=== PATIENT | female | born 1955 | race Caucasian/White ===

== ENCOUNTER → 2016-11-13 | Outpatient (CLI) | payer OTHER ==
--- NOTE | 2016-11-13 14:06 | MAM ---
EXAM DESCRIPTION: MAMMO BREAST SCREENING BILATERAL CAD, images were reviewed with CAD technology, R2 computer-aided detection. CLINICAL HISTORY: [facility]. COMPARISON: 2013. FINDINGS: Routine views are obtained. Glandular tissue is near completely fatty involuted. No dominant mass, architectural distortion or clustered microcalcification.. IMPRESSION: Benign exam. BIRAD CATEGORY: 2 BENIGN RECOMMENDATIONS: FOLLOW-UP: Routine screening mammogram in one year. According to the [employer], yearly mammograms are recommended starting at age 40 and continuing as long as a woman is in good health. Any breast change noted on a breast self-exam should be reported promptly to the patient's healthcare provider. Breast MRI is recommended for women with an approximately 20-25% or greater lifetime risk of breast cancer, including women with a strong family history of breast or ovarian cancer and women who have been treated for Hodgkin's disease. Electronically signed by: Lucie Smith 11/13/2016 14:04
== END ==
LOC: MAMMO 11:35
PROVIDERS: ATTEND Obstetrics & Gynecology
DX: Z12.31 Encounter for screening mammogram for malignant neoplasm of breast (principal)
CPT/HCPCS: 77052; G0202

== ENCOUNTER → 2017-11-14 | Outpatient (CLI) | payer OTHER ==
--- NOTE | 2017-11-15 10:19 | MAM ---
EXAM DESCRIPTION: 3D Screening BILATERAL : Digital Mammography. CLINICAL HISTORY: 62 years Female SCREENING . No complaints. No family history breast cancer. Postmenopausal. No HRT. COMPARISON: 2-D digital screening bilateral studies 11/13/2016 and 11/07/2015. Report from prior examination also reviewed. TECHNIQUE: Bilateral CC and MLO projection full-field images, 3-D tomosynthesis digital mammographic technique. Also bilateral synthesized CC/ MLO full-field images. CAD not utilized. FINDINGS: The breast parenchymal density pattern is: Scattered areas of fibroglandular density. No skin thickening or nipple retraction bilateral solitary microcalcifications. No focal, stellate mass or density, focal asymmetry , and no suspicious microcalcifications bilaterally. Stable mammograms compared to prior study, taking into account differences in mammographic technique IMPRESSION: BI-RADS CATEGORY: 2 - BENIGN FINDINGS. FOLLOW UP: Routine digital bilateral screening, one year interval from October 2017. Written communication explaining the IMPRESSION and follow-up, will be mailed to the patient and referring health care provider. According to the [employer], yearly mammograms are recommended starting at age 40 and continuing as long as a woman is in good health. Any breast change noted on a breast self-exam should be reported promptly to the patient's healthcare provider. Breast MRI is recommended for women with an approximately 20-25% or greater lifetime risk of breast cancer, including women with a strong family history of breast or ovarian cancer and women who have been treated for Hodgkin's disease. A negative mammographic report should not delay tissue diagnosis in patients with significant clinical history or physical findings. Extremely dense breast tissue limits the sensitivity of digital mammography. Electronically signed by: Chris Huff MD 11/15/2017 10:18 AM [facility]
== END | disposition home or self-care (01) ==
LOC: MAMMO 13:54
PROVIDERS: ATTEND Obstetrics & Gynecology
DX: Z12.31 Encounter for screening mammogram for malignant neoplasm of breast (principal)

== ENCOUNTER → 2018-11-18 | Outpatient (CLI) | payer OTHER ==
--- NOTE | 2018-11-19 16:31 | MAM ---
EXAM DESCRIPTION: 3D Screening BILATERAL : Digital Mammography. CLINICAL HISTORY: 63 years Female SCREEN . No complaints. No family history of breast cancer. Childbirth. Postmenopausal. No HRT. Lifetime risk of developing breast cancer (Tyrer-Cuzick model)(%): 5.8. COMPARISON: Bilateral screening digital breast tomosynthesis 11/14/2017. TECHNIQUE: Bilateral CC and MLO projection full-field images, digital tomosynthesis mammographic technique. Bilateral digital 2-D full-field MLO images. CAD not available for tomosynthesis or 2-D images. FINDINGS: The breast parenchymal density pattern is: Almost entirely fatty. No skin thickening or nipple retraction. Bilateral solitary microcalcifications. No new focal, stellate mass or density, focal asymmetry , and no suspicious microcalcifications bilaterally. Stable mammograms compared to prior study. IMPRESSION: Benign exam. BIRAD CATEGORY: 2 BENIGN FINDINGS. RECOMMENDATIONS: FOLLOW UP: Routine digital bilateral mammographic screening, one year interval from October 2018. Written communication explaining the IMPRESSION and follow-up, will be mailed to the patient and referring health care provider. According to the [employer], yearly mammograms are recommended starting at age 40 and continuing as long as a woman is in good health. Any breast change noted on a breast self-exam should be reported promptly to the patient's healthcare provider. Breast MRI is recommended for women with an approximately 20-25% or greater lifetime risk of breast cancer, including women with a strong family history of breast or ovarian cancer and women who have been treated for Hodgkin's disease. A negative mammographic report should not delay tissue diagnosis in patients with significant clinical history or physical findings. Extremely dense breast tissue limits the sensitivity of digital mammography. Electronically signed by: Chris Huff MD 11/19/2018 4:30 PM [facility]
== END ==
LOC: MAMMO 13:00
PROVIDERS: ATTEND Obstetrics & Gynecology
DX: Z12.31 Encounter for screening mammogram for malignant neoplasm of breast (principal)

== ENCOUNTER → 2019-01-19 | Outpatient (CLI) | payer MEDICARE, OTHER ==
--- NOTE | 2019-01-19 11:08 | RAD ---
EXAM DESCRIPTION: Pelvis CLINICAL HISTORY: 64 years Female, M25.561, M25.551 COMPARISON: None. FINDINGS: Single view of the pelvis demonstrates bony pelvis intact. Sclerosis of the symphysis pubis is incidentally noted. No fracture or deformity or dislocation or hip injury is evident. The SI joints are mildly degenerative. IMPRESSION: Negative pelvis one view. Electronically signed by: Adelso Mcclelland MD 01/19/2019 11:04 AM CDT
--- NOTE | 2019-01-19 11:12 | RAD ---
EXAM DESCRIPTION: Knee,Right Complete CLINICAL HISTORY: 64 years, Female, M25.561, M25.551 COMPARISON: None TECHNIQUE: Four views right knee FINDINGS: Four views right knee demonstrate advanced multicompartment degenerative joint disease particularly involving the lateral aspect of the patellofemoral articulation and moderately at the medial and lateral joint compartments. A significant or large joint effusion is not apparent. No fracture or dislocation is seen. IMPRESSION: 1. Moderately advanced degenerative changes right knee. Electronically signed by: Adelso Mcclelland MD 01/19/2019 11:09 AM CDT
== END ==
LOC: RAD 09:06
PROVIDERS: ATTEND Orthopaedic Surgery
DX: M17.11 Unilateral primary osteoarthritis, right knee (principal); M25.551 Pain in right hip

== ENCOUNTER → 2019-04-16 | Outpatient (CLI) | payer MEDICARE, OTHER | DX: Z01.818 Encounter for other preprocedural examination (principal) ==

== ENCOUNTER → 2019-05-07 | Day surgery (SDC) | payer MEDICARE, OTHER ==
--- NOTE | 2019-05-07 09:12 | HP ---
CHIEF COMPLAINT: Right knee pain. HISTORY OF PRESENT ILLNESS: Ms. Pickering is a 64-year-old female with a history of severe pain in the knee. Her pain has been associated with her rheumatoid arthritis. Because of her ongoing pain and failure of conservative measures, she has requested operative intervention. After discussing the risks, benefits and alternatives to that, she has given informed consent. She says that the pain in this knee was not related to trauma, does not radiate and there are no neurologic symptoms. She says it is sharp at times, but is aching on a continual basis. PAST SURGICAL HISTORY: 1. Adenoidectomy. 2. Tubal ligation. 3. Appendectomy. 4. Hysterectomy. 5. Bladder suspension. 6. Hammertoe correction. MEDICATIONS: 1. Benazepril. 2. Amlodipine. 3. Triamterene. 4. Hyoscyamine. 5. Hydroxychloroquine. 6. Omeprazole. 7. Piroxicam. 8. Multiple vitamins. ALLERGIES: NO KNOWN DRUG ALLERGIES. CODE STATUS: Full code. IMMUNIZATIONS: Up to date. SOCIAL HISTORY: The patient does not smoke or use any illicit drugs. She does drink on occasion. FAMILY HISTORY: None pertinent to today's complaint. REVIEW OF SYSTEMS: Negative except as indicated in the History of Present Illness. PHYSICAL EXAMINATION: VITAL SIGNS: Blood pressure 156/106. Pulse 73. Height 5'3". Weight 180 pounds. MENTAL STATUS: The patient is awake, alert, and is able to give a good history and participate in the physical. The patient is oriented to person, place and time. SKIN: Normal tone and turgor. HEENT: Normocephalic, atraumatic. Pupils equal, round and reactive. Mucosal membranes are moist. NECK: Normal range of motion. No thyromegaly, no lymphadenopathy. CHEST: Normal respiratory excursion. CARDIAC: Regular rate and rhythm. No murmurs, rubs or gallops. MUSCULOSKELETAL: The bilateral upper extremities show full active range of motion without pain. She has intact sensation. They are warm and well perfused. She has no deformities and no crepitus. Strength is 5/5. The left lower extremity shows full range of motion of the hip. Sensation is intact in the extremity. It is warm and well perfused. She has no overall deformity and she has full 5/5 strength. The right lower extremity shows full range of motion of the hip. She has near full extension of the knee, but does lack a couple of degrees. She has no overall deformity, but she is very tender to palpation. She has moderate sized effusion today. She does not have any varus/valgus or anterior/posterior laxity. IMAGING: X-rays show severe arthritis of the knee. ASSESSMENT: 1. Rheumatoid arthritis. PLAN: The plan at this point is for total knee arthroplasty. We have discussed the risks, benefits, and alternatives to that and the patient has given informed consent. [id number]
--- NOTE | 2019-05-07 09:39 | RAD ---
EXAM DESCRIPTION: Chest,2 Views CLINICAL HISTORY: pre op COMPARISON: None TECHNIQUE: PA/lateral FINDINGS: There is no acute appearing cardiac or pulmonary abnormality. Heart size is normal with normal pulmonary vascularity. No pleural effusion or pneumothorax. Lungs are clear with no consolidating infiltrate. Lateral view shows intact sternum and T-spine. IMPRESSION: No acute process is identified in the chest. Electronically signed by: Luis Antonio Nicholson MD 05/07/2019 9:37 AM CDT
== END ==
LOC: AMB 08:00
PROVIDERS: ATTEND Orthopaedic Surgery
DX: Z01.810 Encounter for preprocedural cardiovascular examination (principal); Z53.9 Procedure and treatment not carried out, unspecified reason

== ENCOUNTER 2019-06-09 05:30 | Inpatient (IN) | payer MEDICARE, OTHER ==
[2019-06-09] MEDS ORDERED: ceFAZolin SODIUM 1 GM VIAL ONE ×2 (05:52→06:30)
[2019-06-09] MEDS ORDERED: VANCOMYCIN HCL INJ 1,000 MG VIAL IVPB ONE ×3 (05:52→18:03)
[2019-06-09] MEDS ORDERED: LACTATED RINGERS 1,000 ML ONE ×2 (05:52→09:47)
[2019-06-09] MEDS ORDERED: TRANEXAMIC ACID 1,000 MG/10 ML VIAL ONE ×2 (05:52→05:53)
[2019-06-09] MEDS ORDERED: SODIUM CHL 0.9% 100ML MINI-BAG 100 ML IVPB ONE (05:52)
[2019-06-09] MEDS ORDERED: SODIUM CHLORIDE 0.9% 100ML 100 ML IVPB ONE (05:53)
[2019-06-09] MEDS ORDERED: SODIUM CHLORIDE 0.9% 250ML 250 ML ONE ×2 (05:53→18:03)
[2019-06-09] MEDS ORDERED: BUPIVACAINE LIPOSOME 13.3 MG/ML VIAL INJ ONE (06:31)
[2019-06-09] MEDS ORDERED: BUPIVACAINE 0.5% 30 ML VIAL INJ ONE (06:31)
[2019-06-09] MEDS ORDERED: ACETAMINOPHEN IV 1000MG 100 ML ONE (06:32)
[2019-06-09] MEDS ORDERED: MIDAZOLAM INJ 2 MG/2 ML VIAL ONE ×2 (06:33→06:50)
[2019-06-09] MEDS ORDERED: fentaNYL CITRATE INJ 50 MCG/ML AMP ONE (06:33)
[2019-06-09] MEDS ORDERED: MORPHINE SULFATE *EPIDURAL* 0.5 MG/ML VIAL ONE (06:33)
[2019-06-09] MEDS ORDERED: KETAMINE HCL 50 MG/ML SYG IV ONE (06:33)
--- NOTE | 2019-06-09 09:26 | RAD ---
EXAM DESCRIPTION: Fluoroscopy Up to 1Hr CLINICAL HISTORY: 64 years Female, RIGHT TKA COMPARISON: None. TECHNIQUE: A single image from operative C-arm demonstrates placement of a right total knee prosthesis, visualized in the AP projection. Total fluoroscopic time is reported as five seconds with a fluoroscopic dose not available from the equipment utilized. FINDINGS: The AP view demonstrates femoral and tibial components applied to the underlying bone in satisfactory alignment. A lateral view is not submitted. IMPRESSION: Operative view of right total knee replacement, AP view only. Electronically signed by: Adelso Mcclelland MD 06/09/2019 9:24 AM CDT
[2019-06-09] MEDS ORDERED: diphenhydrAMINE HCL 50 MG/ML VIAL IV ONE (10:00)
[2019-06-09] MEDS ORDERED: PROPOFOL 200 MG/20 ML VIAL IV ONE (10:00)
[2019-06-09] MEDS ORDERED: DEXAMETHASONE INJ 10 MG/ML VIAL IV ONE (10:00)
[2019-06-09] MEDS ORDERED: raNITIdine HCL INJ 25 MG/ML VIAL IV ONE (10:00)
[2019-06-09] MEDS ORDERED: ACETAMINOPHEN 500 MG TAB PO PRN (10:04)
[2019-06-09] MEDS ORDERED: ACETAMINOPHEN 325 MG TAB PO PRN (10:04)
[2019-06-09] MEDS ORDERED: MAGNESIUM HYDROXIDE 30 ML UD PO PRN (10:04)
[2019-06-09] MEDS ORDERED: MORPHINE SULFATE INJ 10 MG/ML VIAL IV PRN (10:04)
[2019-06-09] MEDS ORDERED: MORPHINE SULFATE INJ 10 MG/ML VIAL IM PRN (10:04)
[2019-06-09] MEDS ORDERED: PROMETHAZINE HCL INJ 25 MG in SODIUM CHLORIDE 0.9% 50ML 50 ML IVPB PRN (10:04)
[2019-06-09] MEDS ORDERED: DEX 5% W/NACL 0.45% 1000ML 1,000 ML IVS PRN (10:04)
[2019-06-09] MEDS ORDERED: traMADol HCL 50 MG TAB PO PRN (10:04)
[2019-06-09] MEDS ORDERED: PROMETHAZINE HCL INJ 12.5 MG in SODIUM CHLORIDE 0.9% 50ML 50 ML IVPB PRN (10:04)
[2019-06-09] MEDS ORDERED: NALOXONE HCL INJ 0.4 MG/ML VIAL IV PRN (10:04)
[2019-06-09] MEDS ORDERED: ALUMINUM & MAGNESIUM HYDROXIDE 30 ML UD PO PRN (10:04)
[2019-06-09] MEDS ORDERED: TEMAZEPAM 15 MG CAP PO PRN (10:04)
[2019-06-09] MEDS ORDERED: BENZOCAINE-MENTH LOZ (CEPACOL) 1 EA LOZ MT PRN (10:04)
[2019-06-09] MEDS ORDERED: CYCLOBENZAPRINE HCL 10 MG TAB PO PRN (10:04)
[2019-06-09] MEDS ORDERED: SODIUM CHLORIDE 0.9% (FLUSH) 10 ML SYG IV PRN (10:04)
[2019-06-09] MEDS ORDERED: ZOLPIDEM TARTRATE 5 MG TAB PO PRN (10:04)
[2019-06-09] MEDS ORDERED: BISACODYL SUPPOSITORY 10 MG PR PRN (10:04)
[2019-06-09] MEDS ORDERED: MORPHINE PCA 1 MG/ML 100 ML BAG IVPB SCH (10:30)
[2019-06-09] MEDS: IV SET AND CAP CHANGE INJ INJ SCH (11:16)
[2019-06-09] MEDS ORDERED: diphenhydrAMINE HCL 50 MG/ML VIAL IV PRN (11:29)
[2019-06-09] MEDS ORDERED: CETIRIZINE HCL 10 MG TAB PO PRN (11:38)
--- NOTE | 2019-06-09 11:38 | RAD ---
PROVIDED CLINICAL HISTORY/REASON FOR EXAM: TKA Findings: Number of images: Two Location: Right knee Right total knee arthroplasty. No evidence of hardware complication. Anterior right knee soft tissue swelling and emphysema, an expected postoperative finding. No acute fracture or dislocation. IMPRESSION: Right total knee arthroplasty. No evidence of hardware complication. Electronically signed by: Jeet Oleary MD 06/09/2019 11:37 AM CDT
--- NOTE | 2019-06-09 11:58 | CONS ---
SUPERVISING PHYSICIAN: Kadeem De La Fuente MD DATE OF CONSULTATION: 06/09/19 CHIEF COMPLAINT: Medical management. HISTORY OF PRESENT ILLNESS: This is a 64-year-old female who electively underwent right total knee arthroplasty today. She has right knee osteoarthritis which failed conservative measures. For that reason, she underwent the surgical intervention today without any intraoperative complications. Postoperatively, she is in the Medical/Surgical Unit, alert and oriented with no complaints of pain, however, having a little bit of itching after some pain medications. She is in no distress. PAST MEDICAL HISTORY: 1. Hypertension. 2. Reflux. 3. Previous gastric ulcer. 4. Osteoarthritis. PAST SURGICAL HISTORY: 1. Hammertoe surgery. 2. Heel spur surgery. 3. Hysterectomy. 4. Tubal ligation. 5. Cholecystectomy. 6. Appendectomy. 7. Bladder suspension. 8. Adenoidectomy. MEDICATIONS: Please see med rec list. ALLERGIES: NO KNOWN DRUG ALLERGIES. FAMILY HISTORY: Reviewed and noncontributory. SOCIAL HISTORY: No smoking, no illicit drugs. Social alcohol use. REVIEW OF SYSTEMS: Preoperatively, right knee pain. Postoperatively, no pain at this time. She does complain of a little bit of itching. Otherwise, 12 system review of symptoms is negative. PHYSICAL EXAMINATION: VITAL SIGNS: Blood pressure 124/43. Heart rate 65. Respiratory rate 16. Temperature 98.8. Oxygen saturation 97%. GENERAL: Ms. Pickering is a 64-year-old female in no active distress currently. NEUROLOGIC: The patient is alert and oriented. CHEST: Lung sounds are clear to auscultation bilaterally. CARDIOVASCULAR: Regular rate and rhythm. Normal S1, S2. ABDOMEN: Soft. Positive bowel sounds. No tenderness to palpation. GENITOURINARY: Deferred. EXTREMITIES: The right knee is wrapped in an René and ice pack. Peripheral pulses are 2+. Capillary refill is less than 2 seconds. LABORATORY: Preoperative laboratories were reviewed and the EMR. ASSESSMENT: 1. Right knee osteoarthritis status post right total knee arthroplasty, postoperative day 0. 2. Hypertension. 3. Gastroesophageal reflux disease. PLAN: At this time, we will continue physical therapy and pain control per postoperative orders. We will start her anticoagulation this evening with 30 mg of Lovenox b.i.d. I resumed her home medications as well. We will recheck her hemoglobin in the morning. [facility][id number] [facility]
[2019-06-09] MEDS ORDERED: ceFAZolin SODIUM 2 GRAMS PREMI 50 ML IVPB ONE ×2 (14:11→23:31)
[2019-06-09] MEDS: HYOSCYAMINE SULFATE 0.125 MG TAB SL SCH ×2 (15:47→21:15)
[2019-06-09] MEDS: ceFAZolin SODIUM 2 GRAMS PREMI 2 GM in PREMIX BAG 1 BAG IVPB SCH ×2 (15:47→23:58)
[2019-06-09] MEDS: ONDANSETRON INJ 4 MG/2 ML VIAL IV PRN ×2 (16:00→20:08)
[2019-06-09] MEDS: VANCOMYCIN HCL INJ 1,000 MG in SODIUM CHLORIDE 0.9% 250ML 250 ML IVPB SCH (18:05)
[2019-06-09] MEDS: DOCUSATE CALCIUM 240 MG CAP PO SCH (21:11)
[2019-06-09] MEDS: ENOXAPARIN SODIUM 30 MG/0.3 ML SYG SUBCU SCH (23:05)
[2019-06-10] MEDS ORDERED: SODIUM CHLORIDE 0.9% 250ML 250 ML ONE (04:51)
[2019-06-10] MEDS ORDERED: VANCOMYCIN HCL INJ 1,000 MG VIAL IVPB ONE (04:51)
[2019-06-10] MEDS: VANCOMYCIN HCL INJ 1,000 MG in SODIUM CHLORIDE 0.9% 250ML 250 ML IVPB SCH (06:15)
[2019-06-10] MEDS ORDERED: ceFAZolin SODIUM 2 GRAMS PREMI 50 ML IVPB ONE (07:25)
[2019-06-10] MEDS: CELECOXIB 100 MG CAP PO SCH (07:28)
[2019-06-10] MEDS: ceFAZolin SODIUM 2 GRAMS PREMI 2 GM in PREMIX BAG 1 BAG IVPB SCH (07:29)
--- NOTE | 2019-06-10 07:59 | OP ---
DATE OF PROCEDURE: 06/09/19 PREOPERATIVE DIAGNOSIS: 1. Arthritis of the knee. POSTOPERATIVE DIAGNOSIS: 1. Arthritis of the knee. SURGEON: Nestor Botello MD. COMMODITIES BROKER: Chris Soto CST, SA-C. ANESTHESIA: General anesthesia. COMPLICATIONS: None. FINDINGS: 1. Severe arthritis. 2. Severe thinning of the patella to a 10 mm thickness on the lateral 10/30. INDICATION: Ms. Pickering has a history of rheumatoid arthritis. She has had conservative measures which have included management of her rheumatoid arthritis as well as injections. Unfortunately, she has failed to gain relief and has requested operative intervention. After discussing the risks, benefits and alternatives to that, the patient has given informed consent for total knee arthroplasty. PROCEDURE: The patient was brought to the Operating Room and placed in supine position. General anesthesia was induced and the patient's leg was sterilely prepped and draped. Following prepping and draping, the distal femur was exposed and using an intramedullary guide, the distal femoral cut was made. The appropriate sized cutting block was measured, pinned into place, and the anterior, posterior, and chamfer cuts were made. The ACL was transected and the tibia was subluxed. Both the medial and lateral menisci were removed. An intramedullary guide was used to make the proximal tibial cut. The appropriate sized base plate was placed and a trial polyethylene was placed. The trial femur was placed, the knee was reduced, and the knee was taken through a range of motion. The knee was stable in anterior, posterior, varus and valgus stress. The patella tracked anatomically without evidence of subluxation or dislocation. After trialing, the trial components were removed and the bony surfaces were thoroughly irrigated with saline. Following irrigation, the surfaces were dried and the final components were cemented into place. The excess cement was removed and the remaining cement was allowed to cure. The knee was again taken through a range of motion to confirm stability. The wound was then irrigated with saline and closure was performed using PDS to approximate the arthrotomy followed by closure of the subcutaneous tissues with a combination of running and interrupted Monocryl sutures. Sterile dressing was placed. The patient was awoken from anesthesia and taken to Recovery. POSTOPERATIVE PLAN: The patient will be weight-bearing as tolerated on postoperative day 1. COMPONENTS: Ayaka Triathlon knee, size 4 femur, size 4 tibia, 11 mm insert. [facility][id number] [facility]
[2019-06-10] MEDS: HYDROcodone 5MG/APAP 325MG 1 EA TAB PO PRN ×4 (08:07→22:37)
[2019-06-10] MEDS: HCTZ 25 MG/TRIAMTERENE 37.5 MG 1 EA CAP PO SCH (09:22)
[2019-06-10] MEDS: amLODIPine BESYLATE 5 MG TAB PO SCH (09:22)
[2019-06-10] MEDS: MULTIPLE VITAMIN 1 EA TAB PO SCH (09:22)
[2019-06-10] MEDS: POLYETHYLENE GLYCOL 3350 17 GM PCKT PO SCH (09:22)
[2019-06-10] MEDS: CALCIUM CARBONATE (ANTACID) 500 MG CHEWABLE TAB PO SCH (09:22)
[2019-06-10] MEDS: HYOSCYAMINE SULFATE 0.125 MG TAB SL SCH ×3 (09:22→21:10)
[2019-06-10] MEDS: MAGNESIUM OXIDE 400 MG TAB PO SCH (09:22)
[2019-06-10] MEDS: PIROXICAM 20 MG PO SCH (09:29)
[2019-06-10] MEDS: NON-FORMULARY MEDICATION 1 EA MIS (Benazepril Hcl [Benazepril Hcl] 40 MG) PO SCH (09:29)
[2019-06-10] MEDS: ENOXAPARIN SODIUM 30 MG/0.3 ML SYG SUBCU SCH ×3 (12:06→22:34)
[2019-06-10] MEDS: DOCUSATE CALCIUM 240 MG CAP PO SCH (21:10)
--- NOTE | 2019-06-10 21:47 | PN ---
DATE: 06/10/19 SUPERVISING PHYSICIAN: Kadeem De La Fuente M.D. SUBJECTIVE: The patient continues to do well with her physical therapy post surgery on day 1. She reports her pain has been fairly well controlled. She has had no further complaints. She has been up to a chair and seems to be doing okay. OBJECTIVE: VITAL SIGNS: Temperature is afebrile with temperature 98.8, pulse 111/64, respirations 16, satting 100% on nasal cannula at rest on nasal cannula at 1.5 liters. Weight 79.7 kg. GENERAL: The patient has just finished breakfast. She seems to be doing okay. She is not in any acute distress. She notes her pain has been well controlled. She is alert. CHEST: Lung sounds remain clear to auscultation. HEART: Regular rate and rhythm. ABDOMEN: Soft, non-tender. Positive bowel sounds. EXTREMITIES: Right knee has a large bulky dressing in place. Capillary refill being brisk with strong distal pulses. NEUROLOGIC: She remains alert and oriented times three. LABORATORY: postoperative H&H 13.1 and 39.1 respectively. MICROBIOLOGY: MRSA surveillance culture showing to be negative. ASSESSMENT: 1. Right knee osteoarthritis having failed outpatient plan status post right total knee arthroplasty, postoperative day 1. 2. Hypertension, stable. 3. Gastroesophageal reflux disease without any signs of exacerbation. PLAN: Will continue to follow the patient as she continues with her physical therapy. I encouraged good pain management and pulmonary hygiene. She is on DVT prophylaxis per protocol. Her home medications have been resumed. Anticipation of discharging either or Saturday with [facility]. Until we can transition her to outpatient management will continue to monitor and treat as needed. [facility][id number] [facility]
[2019-06-11] MEDS: HYDROcodone 5MG/APAP 325MG 1 EA TAB PO PRN ×5 (02:45→20:31)
[2019-06-11] MEDS: CELECOXIB 100 MG CAP PO SCH (07:22)
[2019-06-11] MEDS: POLYETHYLENE GLYCOL 3350 17 GM PCKT PO SCH (08:30)
[2019-06-11] MEDS: HCTZ 25 MG/TRIAMTERENE 37.5 MG 1 EA CAP PO SCH (08:30)
[2019-06-11] MEDS: amLODIPine BESYLATE 5 MG TAB PO SCH (08:30)
[2019-06-11] MEDS: HYOSCYAMINE SULFATE 0.125 MG TAB SL SCH ×3 (08:30→20:26)
[2019-06-11] MEDS: NON-FORMULARY MEDICATION 1 EA MIS (Benazepril Hcl [Benazepril Hcl] 40 MG) PO SCH (08:30)
[2019-06-11] MEDS: MULTIPLE VITAMIN 1 EA TAB PO SCH (08:30)
[2019-06-11] MEDS: CALCIUM CARBONATE (ANTACID) 500 MG CHEWABLE TAB PO SCH (08:31)
[2019-06-11] MEDS: SODIUM CHLORIDE 0.9% (FLUSH) 10 ML SYG IV SCH ×2 (08:31→20:27)
[2019-06-11] MEDS: MAGNESIUM OXIDE 400 MG TAB PO SCH (08:35)
[2019-06-11] MEDS: ONDANSETRON INJ 4 MG/2 ML VIAL IV PRN (09:16)
[2019-06-11] MEDS: PIROXICAM 20 MG PO SCH (09:36)
--- NOTE | 2019-06-11 09:40 | PN ---
DATE: 06/09/19 POSTOPERATIVE CHECK SUBJECTIVE: Ms. Pickering is doing well. She has good pain control. OBJECTIVE: Afebrile. Vital signs stable. Dressing is clean, dry and intact. ASSESSMENT: Status post total knee arthroplasty. PLAN: The plan at this point is for her to begin weightbearing as tolerated on postoperative day 1. [facility][id number] [facility]
--- NOTE | 2019-06-11 09:41 | PN ---
DATE: 06/10/19 POSTOPERATIVE DAY 1 SUBJECTIVE: Ms. Pickering is doing well and her pain is well controlled. OBJECTIVE: Afebrile. Vital signs stable. Dressing is clean, dry and intact. ASSESSMENT: Status post total knee arthroplasty. PLAN: The plan is to begin weightbearing as tolerated today. [facility][id number] [facility]
--- NOTE | 2019-06-11 09:43 | PN ---
DATE: 06/11/19 SUBJECTIVE: Ms. Pickering is doing really well. She is up to a chair and has been walking already this morning. OBJECTIVE: Afebrile. Vital signs stable. Wound is clean. There are no signs or symptoms of infection. ASSESSMENT: Status post total knee arthroplasty. PLAN: The plan at this point is for her to continue with her weightbearing. We will continue her CPM as well. #[id number] [facility]
[2019-06-11] MEDS: ENOXAPARIN SODIUM 30 MG/0.3 ML SYG SUBCU SCH ×2 (12:34→22:55)
--- NOTE | 2019-06-11 20:25 | PN ---
DATE: 06/11/19 SUPERVISING PHYSICIAN: Kadeem De La Fuente M.D. SUBJECTIVE: The patient is showing good response to therapy. She says her pain control has been adequate. She has had just a little bit of nausea but no vomiting. Otherwise she has had no other complaints. OBJECTIVE: VITAL SIGNS: Temperature 98.5, pulse 74, blood pressure 119/72, respirations 18, satting 95% on room air. She has not yet had a bowel movement. Weight is 79.7 kg. GENERAL: The patient is resting comfortably. Appears to be in no acute distress. She is alert. CHEST: Lungs are clear to auscultation. HEART: Regular rate and rhythm. ABDOMEN: Soft, non-tender. Positive bowel sounds. EXTREMITIES: Right knee has an island dressing in place that is clean and dry without any signs of infection or drainage. Distally his pulses are strong. Capillary refill is brisk. NEUROLOGIC: She is alert and oriented times three. LABORATORY: No additional laboratory studies. RADIOLOGY: No additional radiographic studies. ASSESSMENT: 1. Right knee osteoarthritis having failed outpatient plan status post right total knee arthroplasty, postoperative day 2. 2. Hypertension, stable. 3. Gastroesophageal reflux disease without any signs of exacerbation. PLAN: Will continue with physical and rehabilitation efforts. Anticipate discharging tomorrow to continue [facility]. Continue to be on DVT prophylaxis and encourage good pulmonary hygiene. Again, will hopefully discharge tomorrow. Until then will continue to monitor and treat as needed. #[id number] [facility]
[2019-06-11] MEDS: DOCUSATE CALCIUM 240 MG CAP PO SCH (20:26)
[2019-06-12] MEDS: HYDROcodone 5MG/APAP 325MG 1 EA TAB PO PRN ×4 (00:18→13:18)
[2019-06-12] MEDS: CELECOXIB 100 MG CAP PO SCH (07:35)
[2019-06-12] MEDS: HYOSCYAMINE SULFATE 0.125 MG TAB SL SCH (08:27)
[2019-06-12] MEDS: POLYETHYLENE GLYCOL 3350 17 GM PCKT PO SCH (08:27)
[2019-06-12] MEDS: HCTZ 25 MG/TRIAMTERENE 37.5 MG 1 EA CAP PO SCH (08:27)
[2019-06-12] MEDS: CALCIUM CARBONATE (ANTACID) 500 MG CHEWABLE TAB PO SCH (08:27)
[2019-06-12] MEDS: MULTIPLE VITAMIN 1 EA TAB PO SCH (08:28)
[2019-06-12] MEDS: MAGNESIUM OXIDE 400 MG TAB PO SCH (08:28)
[2019-06-12] MEDS: NON-FORMULARY MEDICATION 1 EA MIS (Benazepril Hcl [Benazepril Hcl] 40 MG) PO SCH (08:29)
[2019-06-12] MEDS ORDERED: PARoxetine HCL 20 MG TAB PO SCH (09:00)
[2019-06-12] MEDS: SODIUM CHLORIDE 0.9% (FLUSH) 10 ML SYG IV SCH (10:54)
[2019-06-12] MEDS: amLODIPine BESYLATE 5 MG TAB PO SCH (10:54)
[2019-06-12] MEDS: IV SET AND CAP CHANGE INJ INJ SCH (10:55)
[2019-06-12] MEDS: ENOXAPARIN SODIUM 30 MG/0.3 ML SYG SUBCU SCH (12:08)
[2019-06-12] MEDS: ONDANSETRON INJ 4 MG/2 ML VIAL IV PRN (12:50)
[2019-06-12 15:18] VITALS: BP 108/78; TEMP 98.1; O2SAT 96
[2019-06-12] MEDS ORDERED: MAGNESIUM HYDROXIDE 30 ML UD PO ONE (21:00)
[2019-06-12] MEDS ORDERED: BISACODYL SUPPOSITORY 10 MG PR ONE (21:00)
--- NOTE | 2019-06-30 15:28 | DS ---
SUPERVISING PHYSICIAN: Kadeem De La Fuente MD ADMISSION DIAGNOSIS: 1. Right knee osteoarthritis status post right total knee arthroplasty, postoperative day 0. 2. Hypertension. 3. Gastroesophageal reflux disease. DISCHARGE DIAGNOSIS: 1. Right knee osteoarthritis having failed outpatient plan status post right total knee arthroplasty, postoperative day 3. 2. Hypertension, stable. 3. Gastroesophageal reflux disease without any signs of exacerbation. REASON FOR HOSPITALIZATION: This is a 64-year-old female who electively underwent right total knee arthroplasty today. She has right knee osteoarthritis which failed conservative measures. For that reason, she underwent the surgical intervention today without any intraoperative complications. Postoperatively, she is in the Medical/Surgical Unit, alert and oriented with no complaints of pain, however, having a little bit of itching after some pain medications. She is in no distress. LABORATORY: Postoperative hemoglobin 13.1, hematocrit 39.1. Preoperative CBC was within normal limits. Preoperative chemistries showed just a mildly low potassium of 3.5, otherwise within normal limits. Urinalysis was clean. Drug screen was negative for substances tested. MICROBIOLOGY: MRSA surveillance culture was negative. RADIOLOGY: Please see postoperative x-rays, full reports. PROCEDURE: Right total knee arthroplasty. Please see Dr. Botello's report for operative comments. CONSULTATION: Hospitalist services. Please see medical consultation report for full details. HOSPITAL COURSE: Ms. Pickering was admitted for elective right total knee arthroplasty on 06/09/19. She had no intraoperative complications and did well postoperatively. She progressed well enough to continue with outpatient management. DISCHARGE ASSESSMENT: VITAL SIGNS: Temperature 98.1. Pulse 83. Blood pressure 108/78. Respirations 18. Saturation 96% on room air. GENERAL: The patient was resting comfortably. CHEST: Lungs clear to auscultation. HEART: Regular rate and rhythm. ABDOMEN: Soft, positive bowel sounds. EXTREMITIES: The right knee had a island dressing in place which was clean and dry with no signs of infection. Distal pulses were strong. Capillary refill brisk. NEUROLOGIC: Alert and oriented times 3. PLAN: Ms. Pickering was discharged on 06/12/[address] Botello. She was given instructions to resume her home medications as prior to hospitalization. She was instructed to take medications prescribed at discharge as directed. Diet was to be usual diet as tolerated. Activity to ambulate only with walker and per physical therapy. Wound care as per Dr. Botello. No tub baths, can shower. MEDICATIONS PRESCRIBED AT DISCHARGE: 1. [place] 5/[address] Botello. 2. Xarelto 10 mg daily, #8, no refills. 3. All other medications prior to hospitalization were continued. DISPOSITION: The patient was discharged home to care of family members to followup with [facility]. CONDITION ON DISCHARGE: Stable and improved. #[id number] [facility]
== END 2019-06-12 14:00 | disposition home or self-care (01) | DRG 470 ==
LOC: AMB 05:30 → MS 10:50
PROVIDERS: ADMIT Orthopaedic Surgery; ATTEND Nurse Practitioner Family
PROC: 0SRC0J9 Replacement of Right Knee Joint with Synthetic Substitute, Cemented, Open Approach (ICD-10-PCS; principal; 2019-06-09 07:00)
DX: M17.11 Unilateral primary osteoarthritis, right knee (principal); I10 Essential (primary) hypertension; K21.9 Gastro-esophageal reflux disease without esophagitis; Z79.899 Other long term (current) drug therapy

== ENCOUNTER 2019-07-28 05:29 | Day surgery (SDC) | payer MEDICARE, OTHER ==
[2019-07-28] MEDS ORDERED: LACTATED RINGERS 1,000 ML ONE (07:58)
[2019-07-28] MEDS ORDERED: HYDROmorphone HCL INJ 2 MG/ML VIAL ONE (09:35)
[2019-07-28] MEDS ORDERED: LIDOCAINE 1% 10 ML VIAL INJ ONE (10:00)
[2019-07-28] MEDS ORDERED: PROPOFOL 200 MG/20 ML VIAL IV ONE (10:00)
[2019-07-28] MEDS ORDERED: SODIUM CHLORIDE 0.9% 50 ML VIAL INJ ONE (10:00)
[2019-07-28] MEDS ORDERED: HYDROcodone 5MG/APAP 325MG 1 EA TAB ONE (10:25)
[2019-07-28] MEDS ORDERED: ONDANSETRON INJ 4 MG/2 ML VIAL ONE (10:48)
[2019-07-28 12:29] VITALS: O2SAT 97
[2019-07-28 12:30] VITALS: BP 121/68; TEMP 98.6
--- NOTE | 2019-07-29 10:20 | RAD ---
EXAM DESCRIPTION: Fluoroscopy Up to 1Hr CLINICAL HISTORY: 64 years Female, RICHARD COMPARISON: None. FINDINGS: Total fluoroscopy time 2 seconds, one fluoroscopic image One intraoperative or perioperative fluoroscopic image of the knee was obtained for the benefit of the surgeon and medical record documentation. Surgical changes related to arthroplasty of the imaged knee. The image is not labeled regarding left or right orientation. IMPRESSION: Limited exam as detailed above without apparent surgical complication. Electronically signed by: Stanley Carrera MD 07/29/2019 10:18 AM CDT
--- NOTE | 2019-08-07 08:44 | OP ---
DATE OF PROCEDURE: 07/28/19 PREOPERATIVE DIAGNOSIS: 1. Arthrofibrosis of the knee. POSTOPERATIVE DIAGNOSIS: 1. Arthrofibrosis of the knee. PROCEDURE: 1. Manipulation under anesthesia. SURGEON: Nestor Botello MD. PANEL MONITOR: Chris Soto CST, SA-C. ANESTHESIA: Conscious sedation. COMPLICATIONS: None. FINDINGS: Preoperative range of motion from just shy of full extension to approximately 95 degrees. Postoperative range of motion to approximately 115 degrees of flexion. INDICATION: Ms. Pickering has a history of a total knee arthroplasty and readily admitted she was not compliant with her physical therapy exercises. Because of her ongoing stiffness, we had discussed doing a closed manipulation versus really aggressive therapy. Because of concerns that she would not be able to do it on her own, she elected to undergo manipulation. We talked about risks, benefits and alternatives to closed manipulation and she gave informed consent for that. PROCEDURE: The patient was brought to the Operating Room and placed in supine position. Conscious sedation was administered and the knee was hyperflexed. Under fluoroscopic imaging, it was examined to ensure there were no acute complications. Following that, the patient was taken back to the Day Surgery Unit. POSTOPERATIVE PLAN: The patient will be doing aggressive range of motion therapy on an everyday basis. #[id number] MTDD
== END 2019-07-28 11:20 | disposition home or self-care (01) ==
LOC: AMB 05:29
PROVIDERS: ATTEND Orthopaedic Surgery
DX: M24.661 Ankylosis, right knee (principal); Z96.651 Presence of right artificial knee joint; Z90.710 Acquired absence of both cervix and uterus; Z79.01 Long term (current) use of anticoagulants; Z79.899 Other long term (current) drug therapy
CPT/HCPCS: 01380; 27570; 76000; A4216; J1170; J2405; J3490; J7120

== ENCOUNTER → 2019-11-20 | Outpatient (CLI) | payer MEDICARE, OTHER ==
--- NOTE | 2019-11-24 11:10 | MAM ---
EXAM DESCRIPTION: 3D Screening BILATERAL : Digital Mammography. CLINICAL HISTORY: 64 years Female SCREEN . No complaints. No personal or family history of breast cancer. Menarche age 11. Childbirth age 21. Hysterectomy age 44. No HRT. Lifetime risk of developing breast cancer (Tyrer-Cuzick model)(%): 5.6. COMPARISON: Bilateral screening digital breast tomosynthesis October 2018 and October 2017. TECHNIQUE: Bilateral CC and MLO projection full-field images, digital tomosynthesis mammographic technique. Bilateral digital 2-D full-field MLO images. CAD available for 2-D images. FINDINGS: The breast parenchymal density pattern is: Scattered areas of fibroglandular density. No skin thickening or nipple retraction. Right breast larger than the left. No new focal, stellate mass or density, focal asymmetry , and no suspicious microcalcifications bilaterally. Stable mammograms compared to prior study. IMPRESSION: No suspicious or significant imaging findings. BI-RADS CATEGORY: 1 - NEGATIVE FOLLOW UP: Routine digital bilateral screening, one year interval from October 2019. Written communication explaining the findings and follow-up, will be mailed to the patient and referring health care provider. According to the [employer], yearly mammograms are recommended starting at age 40 and continuing as long as a woman is in good health. Any breast change noted on a breast self-exam should be reported promptly to the patient's healthcare provider. Breast MRI is recommended for women with an approximately 20-25% or greater lifetime risk of breast cancer, including women with a strong family history of breast or ovarian cancer and women who have been treated for Hodgkin's disease. A negative mammographic report should not delay tissue diagnosis in patients with significant clinical history or physical findings. Extremely dense breast tissue limits the sensitivity of digital mammography. Electronically signed by: Chris Huff MD 11/24/2019 11:08 AM [facility]
== END ==
LOC: MAMMO 11:00
PROVIDERS: ATTEND Obstetrics & Gynecology
DX: Z12.31 Encounter for screening mammogram for malignant neoplasm of breast (principal)